=== PATIENT | female | born 1950 | race Caucasian/White ===

== ENCOUNTER 2020-02-10 12:06 | Outpatient (CLI) | payer OTHER, SELFPAY ==
--- NOTE | 2020-02-15 10:16 | WPDPFTINT ---
PFT Interpretation PFT Interpretation: This PFT met all criteria for ATS standards and reproducibility FEV/FVC post bronchodilator 79% FEV1 100% FVC 90% TLC 94% RV 78% RV/TLC 33% DLCO 68% when adjusted for alveolar volume but not adjusted for hemoglobin Flow volume loops showed some expiratory coving Impression: Possible mild airflow obstruction with mildly reduced diffusion capacity. This pattern maybe suggestive of COPD. Clinical correlation is advised.
--- NOTE | 2020-02-15 10:19 | WPDSIXMINUTE ---
Six Minute Walk Six Minute Walk: The patients O2 sats started at 97% and dropped as low as 93% Total walk distance 304.80 meters conclusion: This patient does not qualify for home oxygen use.
== END 2020-02-10 12:07 | disposition home or self-care (01) ==
PROVIDERS: PCP Internal Medicine Infectious Disease; Visit Provider Nurse Practitioner
DX: J45.909 Unspecified asthma, uncomplicated (principal)
CPT/HCPCS: 94060; 94618; 94726; 94729